=== PATIENT | female | born 1945 | race African-American/Black ===

== ENCOUNTER 2017-10-28 18:07 | Emergency (ER) | payer MEDICARE, MEDICAID ==
[~2017-10-28] VITALS: Ht 162.6 cm; Wt 90.7 kg
[~2017-10-28 18:07] MED LIST: CEPHALEXIN500 MG ORAL; NORCO 5-325 TA1 EACH ORAL; ZANTAC150 MG ORAL
[2017-10-28] MEDS ORDERED: NKM (18:37)
[2017-10-28 19:15] VITALS: BP 166/101
--- NOTE | 2017-10-28 19:41 | Emergency Room Report ---
History of Present Illness General Chief Complaint: Nausea, Vomiting, and Diarrhea Source: Medical Record Present Illness HPI 71 yo female patient presents complaining of nausea and rash. Reports no vomiting since yesterday; denies blood in vomit; reports able to eat since that time. Reports allergic rash yesterday; reports took Benadryl; states rash gone two days ago. Reports hx of gastric ulcer; states seen yesterday by primary care provider. Reports not on any medications currently. Denies acute complaints; denies pain symptoms. Reprots lots of stress at home; reports several family members recently . Denies suicidal thoughts or ideation, or thoughts of hurting others. Denies fever, chest pain, SOB, abdominal pain, dysuria, diarrhea. Allergies: Coded Allergies: VALSARTAN (Unverified Allergy, Unknown, 04/27/14) PROPOXYPHENE HCL (Verified Adverse Reaction, Severe, GI UPSET, 02/20/13) Uncoded Allergies: STEROIDS (Allergy, Unknown, PARADOXICAL REACTION, HIVES, UTACARIA & GI UPSET., 04/27/14) Patient History Past Medical History: see triage record Reviewed Nursing Documentation: PMH: Agreed, PSxH: Agreed Nursing Documentation-PMH Past Medical History: No History, Except For Hx Hypertension: Yes Hx Pacemaker: No Hx Asthma: No Hx COPD: No Hx Diabetes: No Hx Cancer: No Hx Gastrointestinal Problems: Yes - Peptic ulcer Hx Dialysis: No History Of Psychiatric Problem: No Hx Neurological Problems: No Hx Cerebrovascular Accident: No Hx Seizures: No Review of Systems All Other Systems: negative except mentioned in HPI Physical Exam Vital Signs Date Time Temp Pulse Resp B/P (MAP) Pulse Ox O2 Delivery O2 Flow Rate FiO2 10/28/17 18:30 99.0 85 16 162/104 99 Room Air 99.0 Sp02 EP Interpretation: reviewed, normal General Appearance: well appearing, no apparent distress, alert, GCS 15 Head: normocephalic, atraumatic Eyes: bilateral eye normal inspection, bilateral eye PERRL ENT: hearing grossly normal, normal pharynx, no angioedema, normal voice, uvula midline, moist mucus membranes Neck: full range of motion Respiratory: lungs clear, normal breath sounds, no rhonchi, no respiratory distress, no accessory muscle use, no wheezing, speaking full sentences Cardiovascular #1: regular rate, rhythm, no edema Cardiovascular #2: 2+ radial (R), 2+ radial (L) Gastrointestinal: non tender, soft, no mass, non-distended, no guarding, no rebound Genitourinary: no CVA tenderness Musculoskeletal: back normal, digits/nails normal, gait/station normal, normal range of motion, non-tender Neurologic: alert, oriented x3, responsive, motor strength/tone normal, sensory intact Psychiatric: mood/affect normal Skin: no rash Lymphatic: no adenopathy Medical Decision Making PA Attestation Dr. Montero is my supervising Physician whom patient management has been discussed with. Diagnostic Impression: Primary Impression: Hx of gastric ulcer ER Course Pt. presents to the ED c/o vomiting and rash. Ddx considered but are not limited to gastritis, viral syndrome, food poisoning. allergic reaction, rash. Vital signs: are WNL, pt. is afebrile Ordered medication for nausea. ED INTERVENTIONS: Zofran provided to patient. After speaking with patient regarding symptoms, patient states symptoms have gone. Patient reports feelings of stress. PE benign, no rash present, no pain, no symptoms currently. Patient reports symptoms have not been present for the past day. Patient denies acute complaints. Patient does not require workup at this time. Reports feeling stressed out. Informed patient stress can be related to gastric symptoms. Denies speaking with mental health professional, reports only speaking to family members. Denies thoughts of hurting herself or someone else. Discuss patient harms of stress and benefits of speaking with mental health professional outside of immediate family. Discuss stress alleviation techniques, benefits of healthy eating habits and exercise. Patient reports feeling better following administration of medication. Patient able to tolerate PO fluids at this time. Patient does not require abx at this time; afebrile, no recent travel, no blood in stool, able to tolerate foods at this time. Return to ER if symptoms persist. Drink fluids as tolerated to prevent dehydration. DISCHARGE Rx provided for Ranitidine; patient previously took this medication, able to tolerate. Instructed patient to followup with primary care provider and GI specialist for further treatment. At this time pt is stable for d/c to home. Patient is resting comfortably, in no acute distress, nontoxic appearing, talking without difficulty. Patient to take medications as instructed Will provide with patient care instructions and any necessary prescriptions. Care plan and follow-up instructions provided. Patient instructed to follow-up with primary care provider in 3 - 5 days. Patient questions asked and answered. Patient reports understanding and agreement to treatment plan.ER precautions given. Patient instructed to return to ER immediately for any new or worsening of symptoms including but not limited to increasing SOB, persistent fever, intractable vomiting. Last Vital Signs Date Time Temp Pulse Resp B/P (MAP) Pulse Ox O2 Delivery O2 Flow Rate FiO2 10/28/17 19:15 98.7 80 16 166/101 99 Room Air 98.7 Disposition: HOME, SELF-CARE Condition: Stable Scripts Ranitidine Hcl* (ZANTAC*) 150 Mg Tablet 150 MG ORAL TWICE A DAY for 10 Days, #20 TAB Prov: Ethan Vargas 10/28/17 Referrals: NON PHYSICIAN (PCP) Patient Instructions: Peptic Ulcer, [id number] Additional Instructions: Followup with primary care provider in 3 -5 days. Followup with mental health professional for stress relief. Exercise regularly. Take medications as directed. Patient questions asked and answered. ER precautions given, patient instructed to return to ER immediately for any new or worsening of symptoms. Ethan Vargas Oct 28, 2017 19:41
[2017-10-28] MEDS ORDERED: ZANTAC150 MG ORAL (19:42)
[2017-10-28 19:55] VITALS: BP 166/101
== END 2017-10-28 19:56 | disposition home or self-care (01) ==
LOC: EMR 19:09
DX: R11.2 Nausea with vomiting, unspecified (principal); R21 Rash and other nonspecific skin eruption; Z87.11 Personal history of peptic ulcer disease
CPT/HCPCS: 99283

== ENCOUNTER 2019-02-10 21:30 | Emergency (ER) | payer MEDICARE, MEDICAID ==
[~2019-02-10] VITALS: Ht 162.6 cm; Wt 99.8 kg
[~2019-02-10 21:30] MED LIST changes: +NKM
[2019-02-10 21:45] VITALS: BP 197/94
--- NOTE | 2019-02-10 21:45 | NUR ---
ED Nurse Note: Patient walked in to ER due to mascito bite. Per patient she had her TDAP shot 20 years ago, anmd she is here for new one. AAO x4, VSS at this time, skin is warm to touch.
--- NOTE | 2019-02-10 22:09 | Emergency Room Report ---
History of Present Illness General Chief Complaint: Skin Rash/Abscess Source: Patient Present Illness HPI Patient presents with complaints that she feels that she was bit by mosquitoes about 10 days ago right hand left back area on the left lower leg The area has been itching initially and has significantly improved denies any redness or swelling patient was concerned about tetanus and presents for Injection Denies any chest pain or shortness of breath denies any vomiting or diarrhea denies any fevers or chills denies any recent travel Allergies: Coded Allergies: VALSARTAN (Unverified Allergy, Unknown, 02/10/19) PROPOXYPHENE HCL (Verified Adverse Reaction, Severe, GI UPSET, 02/10/19) Uncoded Allergies: STEROIDS (Allergy, Unknown, PARADOXICAL REACTION, HIVES, UTACARIA & GI UPSET., 04/27/14) Patient History Past Medical History: see triage record Pertinent Family History: none Now: No : 3 Para: 2 Reviewed Nursing Documentation: PMH: Agreed; PSxH: Agreed Nursing Documentation-PMH Past Medical History: No History, Except For Hx Hypertension: Yes Hx Pacemaker: No Hx Asthma: No Hx COPD: No Hx Diabetes: No Hx Cancer: No Hx Gastrointestinal Problems: Yes - Peptic ulcer Hx Dialysis: No Hx Neurological Problems: No Hx Cerebrovascular Accident: No Hx Seizures: No Review of Systems All Other Systems: negative except mentioned in HPI Physical Exam Vital Signs Date Time Temp Pulse Resp B/P (MAP) Pulse Ox O2 Delivery O2 Flow Rate FiO2 02/10/19 21:34 97.7 74 18 197/94 (128) 100 Room Air Sp02 EP Interpretation: reviewed, normal General Appearance: well appearing, no apparent distress Head: normocephalic, atraumatic Eyes: bilateral eye PERRL, bilateral eye EOMI ENT: hearing grossly normal, normal pharynx, TMs + canals normal, uvula midline Neck: full range of motion, supple, no meningismus, no bony tend Respiratory: lungs clear, normal breath sounds, no rhonchi, no respiratory distress, no retraction, no accessory muscle use Cardiovascular #1: normal peripheral pulses, regular rate, rhythm, no edema, no gallop, no JVD, no murmur Gastrointestinal: normal bowel sounds, non tender, soft, no mass, no organomegaly, non-distended, no guarding, no hernia, no pulsatile mass, no rebound Genitourinary: no CVA tenderness Musculoskeletal: normal inspection Neurologic: oriented x3, responsive, [facility] III-XII nml as tested, motor strength/ tone normal, sensory intact Psychiatric: mood/affect normal Skin: palpation normal, other - Several areas more specifically left hand laterally small area of breaking the skin possible insect bite no surrounding erythema or fluctuance Lymphatic: normal inspection, no adenopathy Medical Decision Making Diagnostic Impression: Primary Impression: insect bite ER Course The examination does not reveal any obvious cellulitis or abscess patient requesting injection for tetanus which was provided Continues to do well and medically stable for close follow-up Last Vital Signs Date Time Temp Pulse Resp B/P (MAP) Pulse Ox O2 Delivery O2 Flow Rate FiO2 02/10/19 21:34 97.7 74 18 197/94 (128) 100 Room Air Status: improved Disposition: HOME, SELF-CARE Condition: Improved Referrals: NON PHYSICIAN (PCP) Patient Instructions: Insect Bite, [id number] Additional Instructions: Patient is provided with the discharge instructions notified to follow up with primary doctor in the next 2-3 days otherwise return to the er with any worsening symptoms. Please note that this report is being documented using [employer] technology. This can lead to erroneous entry secondary to incorrect interpretation by the dictating instrument. Julia De Los Santos DO Feb 10, 2019 22:09
[2019-02-10] MEDS ORDERED: Tetanus/Diptheria/Pertussis IM ONE (22:15)
[2019-02-10 22:30] VITALS: BP 197/94
--- NOTE | 2019-02-10 22:31 | NUR ---
ED Nurse Note: Pt cleared by health care Provider for discharge. DC instructions/prescription was given and explained to pt and verbalized understanding of teachings. All medical deviecs such as ID band removed. Pt is AAO x4, ambulatory and left with all personal belongings.
== END 2019-02-10 22:31 | disposition home or self-care (01) ==
LOC: EMR 22:01
DX: S60.561A Insect bite (nonvenomous) of right hand, initial encounter (principal); S80.862A Insect bite (nonvenomous), left lower leg, initial encounter; W57.XXXA Bitten or stung by nonvenomous insect and other nonvenomous arthropods, initial encounter; Y93.9 Activity, unspecified; Y92.9 Unspecified place or not applicable; Z88.8 Allergy status to other drugs, medicaments and biological substances; I10 Essential (primary) hypertension
CPT/HCPCS: 90471; 90715; 99283

== ENCOUNTER 2020-04-01 13:53 | Outpatient (RCR) | payer MEDICARE, MEDICAID | END 2020-04-22 | disposition home or self-care (01) | LOC: WCC 13:53 | DX: T86.828 Other complications of skin graft (allograft) (autograft) (principal); Z88.0 Allergy status to penicillin; Z88.6 Allergy status to analgesic agent | CPT/HCPCS: 11042; 11043; 15271; 87070; 87181; 87205; 97605; G0277; Q4103 ==

== ENCOUNTER → 2020-04-08 | Outpatient (CLI) | payer MEDICARE, MEDICAID ==
--- NOTE | 2020-04-08 17:05 | Diagnostic Imaging Report ---
Indication: Cough Technique: 2 views of the chest Comparison: Single view chest dated 05/31/2006 Findings: Lungs and pleural spaces are clear. The heart size is normal. The bones are unremarkable. No significant interim change. Impression: Negative
== END | disposition home or self-care (01) ==
LOC: RAD 16:18
DX: R05 Cough (principal)
CPT/HCPCS: 71046

== ENCOUNTER 2020-04-23 10:57 | Outpatient (RCR) | payer MEDICARE, MEDICAID ==
[~2020-04-23] VITALS: Ht 165.1 cm; Wt 89.8 kg
== END 2020-05-22 | disposition home or self-care (01) ==
LOC: WCC 10:57
DX: T86.828 Other complications of skin graft (allograft) (autograft) (principal); Z88.0 Allergy status to penicillin; Z88.8 Allergy status to other drugs, medicaments and biological substances; L97.822 Non-pressure chronic ulcer of other part of left lower leg with fat layer exposed; Z79.899 Other long term (current) drug therapy
CPT/HCPCS: 11042; 11043; 15271; G0277; G0463; Q4103

== ENCOUNTER 2020-07-08 14:23 | Outpatient (RCR) | payer MEDICARE, MEDICAID | END 2020-07-22 | disposition home or self-care (01) | LOC: WCC 14:23 | DX: L97.821 Non-pressure chronic ulcer of other part of left lower leg limited to breakdown of skin (principal); Z88.0 Allergy status to penicillin; Z88.8 Allergy status to other drugs, medicaments and biological substances | CPT/HCPCS: G0463 ==